=== PATIENT | male | born 1960 ===

== ENCOUNTER 2022-12-28 06:00 | Outpatient (RCR) | payer OTHER, SELFPAY | END 2023-01-05 23:59 | disposition home or self-care (01) | LOC: GPT 06:00 | PROVIDERS: Visit Provider Physician Assistant | DX: Z47.89 Encounter for other orthopedic aftercare (principal) | CPT/HCPCS: 97110; 97140; 97161 ==

== ENCOUNTER 2023-01-06 06:00 | Outpatient (RCR) | payer OTHER, SELFPAY | END 2023-02-04 23:59 | disposition home or self-care (01) | LOC: GPT 06:00 | PROVIDERS: Visit Provider Physician Assistant | DX: Z47.89 Encounter for other orthopedic aftercare (principal) | CPT/HCPCS: 97110; 97140; 97530 ==

== ENCOUNTER 2023-07-17 06:00 | Outpatient (RCR) | payer OTHER, SELFPAY | END 2023-08-07 23:59 | disposition home or self-care (01) | LOC: GPT 06:00 | PROVIDERS: Visit Provider Orthopaedic Surgery Foot and Ankle Surgery | DX: M25.511 Pain in right shoulder (principal) | CPT/HCPCS: 97110; 97112; 97140; 97161 ==

== ENCOUNTER 2023-08-08 06:00 | Outpatient (RCR) | payer OTHER, SELFPAY | END 2023-09-06 23:59 | disposition home or self-care (01) | LOC: GPT 06:00 | PROVIDERS: Visit Provider Orthopaedic Surgery Foot and Ankle Surgery | DX: M25.511 Pain in right shoulder (principal) | CPT/HCPCS: 97110; 97112; 97140; 97530 ==